=== PATIENT | male | born 1960 | race Two or more races ===

== ENCOUNTER 2019-06-24 09:55 | Emergency (ER) | payer MEDICAID ==
[~2019-06-24] VITALS: Ht 167.6 cm; Wt 70.3 kg
[~2019-06-24 09:55] MED LIST: GLUCOPHAGE500 MG ORAL; METFORMIN HCL850 M1 ORAL; OMEPRAZOLE10 M1 ORAL; OMEPRAZOLE20 M3 ORAL; RANITIDINE HCL150 MG ORAL; ZOFRAN ODT4 MG ORAL
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
[2019-06-24] MEDS ORDERED: BACTRIM DS TAB1 EAC1 ORAL (11:24)
[2019-06-24 11:30] VITALS: BP 100/70
--- NOTE | 2019-06-24 11:30 | NUR ---
ED Nurse Note: Pt cleared by ERMD for discharge. DC instructions was given and explained to pt and verbalized understanding of teachings. prescription sent electronically. All medical deviecs such as ID band removed. Pt is AAO x4, ambulatory and left with all personal belongings.
== END 2019-06-24 11:30 | disposition home or self-care (01) ==
LOC: EMR 10:40
DX: T25.131A Burn of first degree of right toe(s) (nail), initial encounter (principal); X12.XXXA Contact with other hot fluids, initial encounter; Y92.9 Unspecified place or not applicable; E11.9 Type 2 diabetes mellitus without complications; Z86.19 Personal history of other infectious and parasitic diseases; K74.60 Unspecified cirrhosis of liver
CPT/HCPCS: 99282